=== PATIENT | female | born 1950 | race Caucasian/White ===

== ENCOUNTER 2021-04-29 11:37 | Emergency (ER) | payer MEDICARE, OTHER ==
[~2021-04-29] VITALS: Ht 165.1 cm; Wt 60.2 kg
[~2021-04-29 11:37] MED LIST: PERCOCET 7.5-31 EACH PO; PREVACID15 MG PO
[2021-04-29] MEDS ORDERED: OMEPRAZOLE20 MG PO (11:57)
[2021-04-29] MEDS ORDERED: PREDNISONE5 MG PO (11:58)
[2021-04-29] MEDS ORDERED: CARAFATE1 GM PO (11:58)
== END 2021-04-29 14:14 | disposition home or self-care (01) ==
LOC: ED 11:37
DX: K29.01 Acute gastritis with bleeding (principal); K21.9 Gastro-esophageal reflux disease without esophagitis; Z90.49 Acquired absence of other specified parts of digestive tract; Z88.2 Allergy status to sulfonamides; Z79.899 Other long term (current) drug therapy; Z79.52 Long term (current) use of systemic steroids
CPT/HCPCS: 80053; 85025; 85651; 99284; A9270